=== PATIENT | female | born 1950 | race Caucasian/White ===

== ENCOUNTER → 2016-08-30 | Outpatient (CLI) | payer BC ==
--- NOTE | 2016-08-31 10:36 | NUR ---
Post biopsy follow up call made. Patient doing well. No pain, swelling, or drainage. No questions.
== END | disposition disaster alternative care site (69) ==
LOC: GPOC 08-28 14:00 → GBCOE 09:11 → GPOC 10:00
PROC: 0HBU3ZX Excision of Left Breast, Percutaneous Approach, Diagnostic (ICD-10-PCS; principal; 2016-08-30)
DX: D05.12 Intraductal carcinoma in situ of left breast (principal); R92.1 Mammographic calcification found on diagnostic imaging of breast
CPT/HCPCS: J7050